=== PATIENT | female | born 1965 | race Caucasian/White ===

== ENCOUNTER 2019-08-12 09:02 | Inpatient (IN) | payer MEDICARE, MEDICAID, SELFPAY ==
[2019-08-12] VITALS (9 sets, daily range): BP systolic 100–130; BP diastolic 58–95; PULSE 75–131; RESP 14–20; TEMP 36.4–37.7; O2SAT 96–100; BMI 25.0
--- NOTE | 2019-08-12 09:33 | ED.GENADULT ---
HPI - General Adult General Chief complaint: Unspecified Stated complaint: angioedema x 2 days Time Seen by Provider: 08/12/19 09:14 Source: patient Mode of arrival: ambulatory Limitations: no limitations History of Present Illness HPI narrative: Patient is a 53-year-old female who presents with facial swelling that is been present now for the last 2 days having had a similar occurrence did note a scratch to the nose with history of staph infection in the past patient notes fever chills and nausea on arrival to emergency department is not taken anything for her symptoms. Patient notes that she has had similar occurrence in the past pain is a moderate aching pain in the face worse with palpation Related Data Allergies Allergy/AdvReac Type Severity Reaction Status Date / Time Penicillins Allergy Unknown UNKNOWN Verified 08/12/19 09:11 Sulfa (Sulfonamide Allergy Unknown Verified 08/12/19 09:11 Antibiotics) Review of Systems Review of Systems: All systems reviewed & are unremarkable except as noted in HPI and below PMFSH Social History Social History (Updated 08/12/19 @ 09:34 by Migel Jimenez PA-C) Smoking status: Current every day smoker Gender identity (if verbalized by the patient): Female Exam Narrative: Exam Narrative: GENERAL: Well-appearing, well-nourished, and in no acute distress. HEAD: Normocephalic, atraumatic. EYES: PERRLA and EOMI. ENT: Nares clear, no rhinorrhea or epistaxis. Mucous membranes moist. Oropharynx without tonsillar hypertrophy exudate or other lesions. NECK: Supple. No adenopathy or masses. CHEST: Clear to auscultation. No respiratory distress. No wheezes rales or rhonchi HEART: Tachycardic rate and rhythm. No murmur heard. EXTREMITIES: Normal range of motion. No edema. SKIN: Warm, dry, no rash. Redness and swelling over the cheeks nose and upper lip with small abrasion of the nose noted. Some drainage from the right eye appears to be purulent NEURO: No focal deficits. Alert and oriented x3. PSYCH: Normal mood and affect. Course Course Emergency Course: Patient in the room in no distress aware of case findings treatment plan and diagnosis agreeing to stay in hospital Consultations Consultation #1: Spoke with hospitalist who is agreed to accept the patient Vital Signs Vital signs: Vital Signs Temperature 97.9 F 08/12/19 09:07 Pulse Rate 75 08/12/19 09:07 Respiratory Rate 18 08/12/19 09:07 Blood Pressure 118/67 08/12/19 09:07 Pulse Oximetry 96 08/12/19 09:07 Temperature 97.9 F 08/12/19 09:07 Pulse Rate 131 H 08/12/19 09:20 Respiratory Rate 16 08/12/19 09:20 Blood Pressure 107/95 H 08/12/19 09:20 Pulse Oximetry 98 08/12/19 09:20 Medical Decision Making MDM Narrative Medical decision making narrative: Patient in the room at this time nontoxic-appearing resting comfortably in the room felt appropriate for inpatient therapy was hydrated in the emergency department and started on antibiotics Vital Signs Vital Signs: Vital Signs Temperature 97.9 F 08/12/19 09:07 Pulse Rate 75 08/12/19 09:07 Respiratory Rate 18 08/12/19 09:07 Blood Pressure 118/67 08/12/19 09:07 Pulse Oximetry 96 08/12/19 09:07 Temperature 97.9 F 08/12/19 09:07 Pulse Rate 131 H 08/12/19 09:20 Respiratory Rate 16 08/12/19 09:20 Blood Pressure 107/95 H 08/12/19 09:20 Pulse Oximetry 98 08/12/19 09:20 Discharge Plan Discharge Clinical Impression: Cellulitis of face, Sepsis Patient Disposition: Still a Patient Condition: Stable Follow-up/Referrals: PHYSICIAN,ASSISTANCE SPECIALIST [Primary Care Provider] -
[2019-08-12 09:54] LABS: Basophils Absolute Auto 0.1 K/mm3 (0.0-0.1); Basophils Percent Auto 0.5 % (0.2-1.2); Eosinophils Percent Auto 0.1 % (0-4.4); Hemoglobin 13.1 g/dL (12.0-15.0); Immature Granulocyte Absolute 0.23 K/mm3 (0.00-0.031); Immature Granulocyte Percent A 1.2 % (0-0.5); Lymphocytes Absolute Auto 1.82 K/mm3 (0.9-3.2); Lymphocytes Percent Auto 9.8 % (18.3-44.2); Mean Corpuscular Hemoglobin 31.1 pg (26-34); Mean Corpuscular Volume 97.4 fl (80-100); Monocytes Absolute Auto 1.9 K/mm3 (0.1-0.6); Monocytes Percent Auto 10.2 % (2.6-8.5); Neutrophils Absolute Auto 14.5 K/mm3 (1.3-6.7); Neutrophils Percent Auto 78.2 % (45.5-73.1); Platelet Count Result 268 k/mm3 (150-375); Red Blood Count 4.21 M/mm3 (4.2-5.4); Red Cell Distribution Width 13.8 % (11.5-14.5); White Blood Count 18.6 K/mm3 (4.5-10.0)
[2019-08-12 10:06] LABS: Blood Urea Nitrogen 12 mg/dL (7-17); Calcium 9.3 mg/dL (8.4-10.2); Carbon Dioxide 24 mmol/L (22-30); Chloride 94 mmol/L (98-107); Estimated CRCL calculation 34 ml/min; Estimated Glomerular Filt Rate 47; Glucose 127 mg/dL (65-105); Lactic Acid Reflex 3.1 mmol/L (0.7-2.1); Potassium 3.3 mmol/L (3.4-5.0); Sodium 139 mmol/L (137-145)
[2019-08-12] MEDS: SODIUM CHLORIDE 0.9% IV 1,000 ML 999 ML IV CONT ×2 (10:22→10:26)
--- NOTE | 2019-08-12 12:09 | ADMGEN ---
This patient, Sintia Hernández, was admitted to 2 Medical Room 252-. Patient/family oriented to hospital policies and general routines including ID bracelet, bed and alarms, visiting hours, pain management, procedures, bathroom and other care routines, personal items, smoking policy, room service/diet, and visiting hours. Valuables list has been completed. Information on how to activate the Rapid Response Team has been discussed. Patient/Family are encouraged to report perceived risks to care and to ask questions if they do not understand what they are told or what they should do.
[2019-08-12 12:52] LABS: Reflex Lactic Acid Yes or No Add Lactic
[2019-08-12 13:48] LABS: Lactic Acid 1.1 mmol/L (0.7-2.1)
[2019-08-12] MEDS: KETOROLAC 15 MG/ML VIAL (*BKC) IV PUSH (15:48)
[2019-08-12] MEDS: ONDANSETRON INJ 4 MG/2 ML VIAL IV PUSH (16:11)
--- NOTE | 2019-08-12 17:16 | PM.IMHP ---
H&P: HPI History of Present Illness Chief complaint: facial cellulitis/sepsis Narrative: Date of visit 1644. Sintia Hernández is a 53 year old hypertensive white female with history of cerebral vascular disease who presented to the hospital with complaints painful red swelling of her face of 1-2 days duration. She had been playing with her granddaughter some 3-4 days ago when she was accidentally struck on the side of her nose and face with a whole way. That left a small abrasion and within 48 hours she had the swelling and erythema. She has felt warm but with temperature as high as 100? at home and with swelling worsening she came in for evaluation. She had a marked leukocytosis tachycardia and thus admitted for evaluation and treatment of the same. She did relate that she had a minor staph infection in the past under nasal full old but nothing as severe as this. Review of Systems Review of Systems: Narrative: Constitutional weight is steady and appetite good prior to present illness Eye no double vision or scotoma but low but difficulty seen with swelling around her right eye Mouth slight pharyngitis Pulmonary no shortness of breath wheezing or cough CV no chest pain or palpitation GI she has had some nausea without vomiting no diarrhea melena or hematochezia no dysuria hematuria Muscle skeletal no particular joint discomfort Integument the abrasion and and erythema Neuro previous history of right hemiparesis with CVA and seem to be worse at present time with present illness [facility] Family History Family History (Updated 08/12/19 @ 17:30 by Aamir Mckeon MD) Father Acute myocardial infarction Mother Hypertension Social History Social History (Updated 08/12/19 @ 09:34 by Migel Jimenez PA-C) Years smoked: 20 Smoking status: Current some day smoker Tobacco type: cigarettes Second hand tobacco smoke exposure: Yes Alcohol intake: never Substance use: never Gender identity (if verbalized by the patient): Female Spiritual care concerns: No Agree to blood products: Yes Meds Home Medications and Allergies Home Medications Medication Instructions Recorded Confirmed Type amlodipine 10 mg PO DAILY 08/12/19 08/12/19 History atorvastatin 80 mg PO HS 08/12/19 08/12/19 History baclofen 10 mg PO TID 08/12/19 08/12/19 History calcium carbonate [Calcium 600] 1,200 mg PO DAILY 08/12/19 08/12/19 History levothyroxine 100 mcg PO DAILY 08/12/19 08/12/19 History multivitamin,[id number] 1 tablet PO DAILY 08/12/19 08/12/19 History [Complete Multivitamin] tramadol 50 mg PO Q6H PRN 08/12/19 08/12/19 History Allergies Allergy/AdvReac Type Severity Reaction Status Date / Time Penicillins Allergy Unknown UNKNOWN Verified 08/12/19 09:11 Sulfa (Sulfonamide Allergy Unknown Verified 08/12/19 09:11 Antibiotics) Vital Signs Vital Signs - 24 hr 08/12/19 09:07 08/12/19 09:20 08/12/19 10:31 Temperature 36.6 C Pulse Rate 75 131 H 98 Respiratory Rate 18 16 16 Blood Pressure 118/67 107/95 H 109/66 Pulse Oximetry 96 98 97 08/12/19 11:12 08/12/19 12:00 08/12/19 12:02 Temperature 37.6 C 36.8 C Pulse Rate 97 94 90 Respiratory Rate 20 16 20 Blood Pressure 109/66 113/68 110/70 Pulse Oximetry 99 100 97 08/12/19 14:00 Temperature 37.7 C H Pulse Rate 95 Respiratory Rate 16 Blood Pressure 100/58 L Pulse Oximetry 97 Exam Narrative: Exam Narrative: Blood pressure presently is 100/60 pulse is 95 temperature is 37.7? pulse Pupils are reactive though the right eye is almost swollen shut with some matting at the corner of the eye Mouth appears normal not a good look at the pharynx due to large tongue Neck some adenopathy at the angle of the jaw and preauricular area supple no carotid bruits Lungs are clear CV regular, slight tachy with regular rhythm no murmurs or gallops Abdomen is soft nontender bowel sounds seem to be slightly hyperactive Extremities without edema no calf tende
[2019-08-12] MEDS: BACLOFEN 10 MG TABLET PO (17:58)
[2019-08-12] MEDS: KCL 40 MEQ/0.9% SOD CHL 1,000 ML 100 ML IV CONT (17:59)
[2019-08-12] MEDS: TRAMADOL HCL 50 MG TABLET PO (18:07)
[2019-08-12] MEDS: ENOXAPARIN 40 MG/0.4 ML SYRINGE SUB-Q (20:21)
[2019-08-12] MEDS: ATORVASTATIN 40 MG TABLET 80 MG PO (20:21)
[2019-08-12] MEDS: FAMOTIDINE 20 MG/2 ML VIAL IV PUSH (20:22)
[2019-08-12] MEDS: MUPIROCIN 2% OINT 22 GM TUBE 1 APPLIC TOPICAL (20:24)
[2019-08-13] MEDS: TRAMADOL HCL 50 MG TABLET PO ×2 (00:44→21:19)
[2019-08-13 02:00] VITALS: BP 124/65; PULSE 88; RESP 16; TEMP 36.3; O2SAT 100
[2019-08-13] MEDS: KCL 40 MEQ/0.9% SOD CHL 1,000 ML 100 ML IV CONT (04:18)
[2019-08-13] MEDS: LEVOTHYROXINE SODIUM 100 MCG TABLET PO (05:34)
[2019-08-13] MEDS: KETOROLAC 15 MG/ML VIAL (*BKC) IV PUSH ×2 (05:39→15:56)
[2019-08-13 06:00] VITALS: BP 136/77; PULSE 102; RESP 18; TEMP 37.2; O2SAT 98
[2019-08-13 06:07] LABS: Basophils Percent Auto 0.4 % (0.2-1.2); Eosinophils Absolute Auto 0.1 K/mm3 (0-0.3); Eosinophils Percent Auto 0.6 % (0-4.4); Hematocrit 29.9 % (37.0-47.0); Hemoglobin 9.6 g/dL (12.0-15.0); Immature Granulocyte Absolute 0.12 K/mm3 (0.00-0.031); Immature Granulocyte Percent A 1.2 % (0-0.5); Lymphocytes Absolute Auto 1.56 K/mm3 (0.9-3.2); Lymphocytes Percent Auto 15.3 % (18.3-44.2); Mean Corpuscular HGB Conc 32.1 g/dl (32-36); Mean Corpuscular Hemoglobin 30.9 pg (26-34); Mean Corpuscular Volume 96.1 fl (80-100); Mean Platelet Volume 10.3 fl (7.4-10.4); Monocytes Absolute Auto 0.9 K/mm3 (0.1-0.6); Monocytes Percent Auto 9.1 % (2.6-8.5); Neutrophils Absolute Auto 7.5 K/mm3 (1.3-6.7); Neutrophils Percent Auto 73.4 % (45.5-73.1); Platelet Count Result 185 k/mm3 (150-375); Red Blood Count 3.11 M/mm3 (4.2-5.4); Red Cell Distribution Width 13.9 % (11.5-14.5); White Blood Count 10.2 K/mm3 (4.5-10.0)
[2019-08-13 06:21] LABS: Alanine Aminotransferase 34 U/L (4-35); Albumin Level 2.9 g/dL (3.5-5.1); Alkaline Phosphatase 77 U/L (38-126); Aspartate Amino Transferase 51 U/L (14-36); Bilirubin,Total 0.2 mg/dL (0.2-1.3); Blood Urea Nitrogen 12 mg/dL (7-17); Calcium 7.4 mg/dL (8.4-10.2); Carbon Dioxide 21 mmol/L (22-30); Chloride 108 mmol/L (98-107); Estimated CRCL calculation 50 ml/min; Estimated Glomerular Filt Rate > 60; Glucose 91 mg/dL (65-105); Potassium 4.3 mmol/L (3.4-5.0); Sodium 139 mmol/L (137-145)
[2019-08-13] MEDS: ASPIRIN 81 MG ENTERIC TABLET PO (08:30)
[2019-08-13] MEDS: BACLOFEN 10 MG TABLET PO ×2 (08:30→17:48)
[2019-08-13] MEDS: CALCIUM CARBONATE (OSCAL) 500 MG TABLET 1000 MG PO (08:30)
[2019-08-13] MEDS: THERAPEUTIC MULTIVITAMINS/MINERALS TAB (*BKC) 1 TABLET PO (08:30)
[2019-08-13] MEDS: FAMOTIDINE 20 MG/2 ML VIAL IV PUSH ×2 (08:30→21:19)
[2019-08-13] MEDS: MUPIROCIN 2% OINT 22 GM TUBE 1 APPLIC TOPICAL ×2 (08:31→21:19)
[2019-08-13 10:00] VITALS: BP 123/75; PULSE 76; RESP 16; TEMP 37.4; O2SAT 100
--- NOTE | 2019-08-13 11:40 | PM.IMPN ---
Progress Note: A&P Assessment and Plan (1) Cellulitis of face: Code(s): L03.211 - Cellulitis of face Status: Acute Assessment and Plan: Staff are strep. Cultures have been obtained and so far negative. Continue vancomycin (2) Sepsis: Code(s): A41.9 - Sepsis, unspecified organism Status: Acute Assessment and Plan: As evidence by tachycardia, leukocytosis, and elevated lactic acid. Received 2 L of fluid in ER will continue IV fluid here along with antibiotics. Secondary to cellulitis Has resolved with WBC and pulse rate dropping (3) Hypertension: Code(s): I10 - Essential (primary) hypertension Status: Acute Assessment and Plan: Pressure is soft will still hold amlodipine today, possibly restart 08/13 (4) Cerebral vascular disease: Code(s): I67.9 - Cerebrovascular disease, unspecified Status: Acute Assessment and Plan: History and distant past. She stop taking her aspirin in the past. Will continue her statin and use low-dose aspirin (5) Hyperlipidemia: Code(s): E78.5 - Hyperlipidemia, unspecified Status: Acute Assessment and Plan: Continue statin , SGOT slightly elevated. Recheck in a.m. with hepatitis profile (6) DVT prophylaxis: Code(s): Z29.9 - Encounter for prophylactic measures, unspecified Status: Acute Assessment and Plan: Lovenox Subjective Date/time seen: 08/13/19 11:40 Interval history: Date of visit 08/12. 53-year-old hypertensive white female with past history of cerebrovascular disease admitted with cellulitis of her face over the last 48 hours. Swelling is subsided somewhat and pruritus is better.. Low-grade temp only no nausea and ate breakfast Exam Narrative: Exam Narrative: Blood pressure presently is 124/74 pulse is 76 temperature is 37.4? Pupils are reactive though the right eye is now more open Mouth appears normal not a good look at the pharynx due to large tongue Neck some adenopathy at the angle of the jaw and preauricular area supple no carotid bruits and inflammation extends below irregular over jaw on the right Lungs are clear CV regular, no murmurs or gallops Abdomen is soft nontender bowel sounds seem to be slightly hyperactive Extremities without edema no calf tenderness dorsalis pedis posterior tibial 2+ Neuro she is alert and no gross focal deficits Integument she has marked erythema and swelling right facial area extending over to the left side . Faint abrasion on the right side of her nose Objective Data Vital Signs Vital Signs: Vital Signs - 24 hr 08/12/19 12:00 08/12/19 12:02 08/12/19 14:00 Temperature 37.6 C 36.8 C 37.7 C H Pulse Rate 94 90 95 Respiratory Rate 16 20 16 Blood Pressure 113/68 110/70 100/58 L Pulse Oximetry 100 97 97 08/12/19 18:00 08/12/19 21:23 08/13/19 02:00 Temperature 37.6 C 36.4 C 36.3 C L Pulse Rate 84 92 88 Respiratory Rate 14 16 16 Blood Pressure 130/76 122/68 124/65 Pulse Oximetry 100 100 100 08/13/19 06:00 08/13/19 10:00 Temperature 37.2 C 37.4 C Pulse Rate 102 H 76 Respiratory Rate 18 16 Blood Pressure 136/77 123/75 Pulse Oximetry 98 100 Intake/Output Intake/Output: Intake & Output 08/10/19 08/11/19 08/12/19 08/13/19 23:59 23:59 23:59 23:59 Intake Total 3520 1929 Output Total 550 Balance 3520 1379 Meds/Results Medications: Active Medications Generic Name Dose Route Start Last Admin Trade Name Freq PRN Reason Stop Dose Admin Acetaminophen 650 mg 08/12/19 16:49 Tylenol Tablet PO Q6H PRN Mild Pain (1-3) or Fever Aspirin 81 mg 08/13/19 09:00 08/13/19 08:30 Aspirin Ec PO 81 mg QAM OCTAVIO Administration Atorvastatin Calcium 80 mg 08/12/19 21:00 08/12/19 20:21 Lipitor PO 80 mg HS OCTAVIO Administration Baclofen 10 mg 08/12/19 17:00 08/13/19 08:30 Lioresal Po PO 10 mg TID OCTAVIO Administration Calcium Carbonate 1,000 mg 08/12/19 17:10 08/13/19 08:30
[2019-08-13 14:00] VITALS: BP 125/70; PULSE 90; RESP 16; TEMP 36.6; O2SAT 99
[2019-08-13 18:00] VITALS: BP 128/78; PULSE 76; RESP 16; TEMP 37.1; O2SAT 100
[2019-08-13] MEDS: ATORVASTATIN 40 MG TABLET 80 MG PO (21:20)
[2019-08-13] MEDS: ENOXAPARIN 40 MG/0.4 ML SYRINGE SUB-Q (21:21)
[2019-08-13 21:36] VITALS: BP 111/55; PULSE 91; RESP 16; TEMP 37; O2SAT 98
[2019-08-14] VITALS (8 sets, daily range): BP systolic 100–128; BP diastolic 57–76; PULSE 77–102; RESP 16–19; TEMP 36.2–38.1; O2SAT 94–100
[2019-08-14] MEDS: KETOROLAC 15 MG/ML VIAL (*BKC) IV PUSH ×3 (00:38→21:08)
[2019-08-14 05:44] LABS: Basophils Absolute Auto 0.1 K/mm3 (0.0-0.1); Basophils Percent Auto 0.6 % (0.2-1.2); Eosinophils Absolute Auto 0.3 K/mm3 (0-0.3); Eosinophils Percent Auto 2.4 % (0-4.4); Hematocrit 31.1 % (37.0-47.0); Hemoglobin 9.8 g/dL (12.0-15.0); Immature Granulocyte Absolute 0.18 K/mm3 (0.00-0.031); Immature Granulocyte Percent A 1.5 % (0-0.5); Lymphocytes Absolute Auto 2.07 K/mm3 (0.9-3.2); Lymphocytes Percent Auto 17.4 % (18.3-44.2); Mean Corpuscular HGB Conc 31.5 g/dl (32-36); Mean Corpuscular Hemoglobin 30.8 pg (26-34); Mean Corpuscular Volume 97.8 fl (80-100); Mean Platelet Volume 10.4 fl (7.4-10.4); Monocytes Absolute Auto 1.3 K/mm3 (0.1-0.6); Monocytes Percent Auto 10.9 % (2.6-8.5); Neutrophils Percent Auto 67.2 % (45.5-73.1); Platelet Count Result 213 k/mm3 (150-375); Red Blood Count 3.18 M/mm3 (4.2-5.4); Red Cell Distribution Width 14.3 % (11.5-14.5); White Blood Count 11.9 K/mm3 (4.5-10.0)
[2019-08-14 05:58] LABS: Alanine Aminotransferase 34 U/L (4-35); Albumin Level 2.9 g/dL (3.5-5.1); Alkaline Phosphatase 77 U/L (38-126); Aspartate Amino Transferase 44 U/L (14-36); Bilirubin,Total 0.2 mg/dL (0.2-1.3)
[2019-08-14] MEDS: LEVOTHYROXINE SODIUM 100 MCG TABLET PO (06:05)
[2019-08-14] MEDS: TRAMADOL HCL 50 MG TABLET PO ×2 (06:08→12:08)
[2019-08-14 06:25] LABS: Hepatitis B Surface Antigen Negative (Negative)
[2019-08-14 06:31] LABS: HAV RESULT Negative (Negative); Hepatitis B Core IgM Result Negative (Negative)
[2019-08-14 06:42] LABS: Hepatitis C Virus Antibody Negative (Negative)
[2019-08-14] MEDS: CALCIUM CARBONATE (OSCAL) 500 MG TABLET 1000 MG PO (08:23)
[2019-08-14] MEDS: THERAPEUTIC MULTIVITAMINS/MINERALS TAB (*BKC) 1 TABLET PO (08:23)
[2019-08-14] MEDS: ASPIRIN 81 MG ENTERIC TABLET PO (08:23)
[2019-08-14] MEDS: FAMOTIDINE 20 MG/2 ML VIAL IV PUSH ×2 (08:24→21:09)
[2019-08-14] MEDS: BACLOFEN 10 MG TABLET PO ×3 (08:25→16:56)
--- NOTE | 2019-08-14 15:21 | PM.IMPN ---
Progress Note: A&P Assessment and Plan (1) Cellulitis of face: Code(s): L03.211 - Cellulitis of face Status: Acute Assessment and Plan: Staff or strep. Cultures have been obtained and so far negative. Continue vancomycin, with continued improvement E E (2) Sepsis: Code(s): A41.9 - Sepsis, unspecified organism Status: Acute Assessment and Plan: As evidence by tachycardia, leukocytosis, and elevated lactic acid. Received 2 L of fluid in ER will continue Ed IV fluid untill 08/12. Secondary to cellulitis Has resolved with WBC and pulse rate dropping (3) Hypertension: Code(s): I10 - Essential (primary) hypertension Status: Acute Assessment and Plan: Pressure was soft forand still holding amlodipine today, possibly restart 08/14 murmur (4) Cerebral vascular disease: Code(s): I67.9 - Cerebrovascular disease, unspecified Status: Acute Assessment and Plan: History and distant past. She stop taking her aspirin in the past. Will continue her statin and use low-dose aspirin (5) Hyperlipidemia: Code(s): E78.5 - Hyperlipidemia, unspecified Status: Acute Assessment and Plan: Continue statin , SGOT slightly elevated but better today, and hep profile negative (6) DVT prophylaxis: Code(s): Z29.9 - Encounter for prophylactic measures, unspecified Status: Acute Assessment and Plan: Lovenox (7) Anemia: Code(s): D64.9 - Anemia, unspecified Status: Acute Assessment and Plan: Probably secondary to aggressive hydration and acute infection, but will check iron studies and B12 08/14 Subjective Date/time seen: 08/14/19 15:21 Interval history: Date of visit 08/13. 53-year-old hypertensive white female with past history of cerebrovascular disease admitted with cellulitis of her face that started 23-48 hrs prior to admission.. Swelling continues to improve and pruritus is better.. Low-grade temp only no nausea . Exam Narrative: Exam Narrative: Blood pressure presently is 124/76 pulse is 76 temperature is 37.4? tMax Pupils are reactive though the right eye is now more open much more today with decrease erythema and inflamation Mouth appears normal not a good look at the pharynx due to large tongue Neck some adenopathy at the angle of the jaw and preauricular area as before, supple Lungs are clear CV regular, no murmurs or gallops Abdomen is soft nontender bowel sounds seem to be slightly hyperactive Extremities without edema dorsalis pedis posterior tibial 2+ Neuro she is alert and no gross focal deficits Integument she has marked erythema and swelling right facial area extending over to the left side . Faint abrasion on the right side of her nose Objective Data Vital Signs Vital Signs: Vital Signs - 24 hr 08/13/19 18:00 08/13/19 21:36 08/14/19 02:12 Temperature 37.1 C 37.0 C 36.8 C Pulse Rate 76 91 88 Respiratory Rate 16 16 16 Blood Pressure 128/78 111/55 L 117/62 Pulse Oximetry 100 98 100 08/14/19 06:00 08/14/19 08:00 08/14/19 14:00 Temperature 37.0 C 37.1 C 37.5 C Pulse Rate 77 95 98 Respiratory Rate 16 19 16 Blood Pressure 118/62 100/57 L 124/76 Pulse Oximetry 96 96 98 Intake/Output Intake/Output: Intake & Output 08/11/19 08/12/19 08/13/19 08/14/19 23:59 23:59 23:59 23:59 Intake Total 3520 4270 1150 Output Total 1750 1150 Balance 3520 2520 0 Meds/Results Medications: Active Medications Generic Name Dose Route Start Last Admin Trade Name Freq PRN Reason Stop Dose Admin Acetaminophen 650 mg 08/12/19 16:49 Tylenol Tablet PO Q6H PRN Mild Pain (1-3) or Fever Aspirin 81 mg 08/13/19 09:00 08/14/19 08:23 Aspirin Ec PO 81 mg QAM OCTAVIO Administration Atorvastatin Calcium 80 mg 08/12/19 21:00 08/13/19 21:20 Lipitor PO 80 mg HS OCTAVIO Administration Baclofen 10 mg 08/12/19 17:00 08/14/19 12:08 Lioresal Po PO 10 mg TID OCTAVIO Admini
[2019-08-14] MEDS: LORATADINE 10 MG TABLET PO (16:56)
[2019-08-14] MEDS: EUCERIN CREAM 120 GM JAR 1 APPLIC TOPICAL (16:57)
[2019-08-14] MEDS: ACETAMINOPHEN 325 MG TABLET 650 MG PO (18:01)
[2019-08-14] MEDS: ENOXAPARIN 40 MG/0.4 ML SYRINGE SUB-Q (21:09)
[2019-08-14] MEDS: ATORVASTATIN 40 MG TABLET 80 MG PO (21:09)
[2019-08-15] VITALS (7 sets, daily range): BP systolic 114–157; BP diastolic 60–91; PULSE 80–103; RESP 14–22; TEMP 36.3–37.2; O2SAT 93–99
[2019-08-15] MEDS: KETOROLAC 15 MG/ML VIAL (*BKC) IV PUSH ×2 (03:32→15:19)
[2019-08-15 05:40] LABS: Basophils Absolute Auto 0.1 K/mm3 (0.0-0.1); Basophils Percent Auto 0.7 % (0.2-1.2); Eosinophils Absolute Auto 0.4 K/mm3 (0-0.3); Eosinophils Percent Auto 3.4 % (0-4.4); Hematocrit 32.4 % (37.0-47.0); Hemoglobin 10.5 g/dL (12.0-15.0); Immature Granulocyte Absolute 0.22 K/mm3 (0.00-0.031); Immature Granulocyte Percent A 1.9 % (0-0.5); Immature Reticulocyte Fraction 5.1 % (3.0-15.9); Lymphocytes Absolute Auto 2.17 K/mm3 (0.9-3.2); Lymphocytes Percent Auto 18.9 % (18.3-44.2); Mean Corpuscular HGB Conc 32.4 g/dl (32-36); Mean Corpuscular Volume 95.6 fl (80-100); Mean Platelet Volume 10.1 fl (7.4-10.4); Monocytes Absolute Auto 1.1 K/mm3 (0.1-0.6); Monocytes Percent Auto 9.5 % (2.6-8.5); Neutrophils Absolute Auto 7.5 K/mm3 (1.3-6.7); Neutrophils Percent Auto 65.6 % (45.5-73.1); Platelet Count Result 245 k/mm3 (150-375); Red Blood Count 3.39 M/mm3 (4.2-5.4); Red Cell Distribution Width 14.2 % (11.5-14.5); Reticulocyte Hemoglobin Conten 30.5 pg (28.2-35.7); Reticulocyte Percent 0.68 % (0.7-4.3); Reticulocytes Absolute 0.02 B/L (32.2-175.7); White Blood Count 11.5 K/mm3 (4.5-10.0)
[2019-08-15 05:51] LABS: Alanine Aminotransferase 28 U/L (4-35); Albumin Level 3.2 g/dL (3.5-5.1); Alkaline Phosphatase 93 U/L (38-126); Aspartate Amino Transferase 28 U/L (14-36); Bilirubin,Total 0.4 mg/dL (0.2-1.3); Blood Urea Nitrogen 11 mg/dL (7-17); Calcium 8.5 mg/dL (8.4-10.2); Carbon Dioxide 26 mmol/L (22-30); Chloride 110 mmol/L (98-107); Estimated CRCL calculation 50 ml/min; Estimated Glomerular Filt Rate > 60; Glucose 93 mg/dL (65-105); Potassium 3.7 mmol/L (3.4-5.0); Sodium 140 mmol/L (137-145)
[2019-08-15 05:55] LABS: Iron 27 ug/dL (37-170)
[2019-08-15 06:05] LABS: Percent Iron Saturation 11 % (20-50)
[2019-08-15] MEDS: LEVOTHYROXINE SODIUM 100 MCG TABLET PO (06:07)
[2019-08-15 06:28] LABS: Lactate Dehydrogenase 503 U/L (313-618)
[2019-08-15] MEDS: THERAPEUTIC MULTIVITAMINS/MINERALS TAB (*BKC) 1 TABLET PO (08:07)
[2019-08-15] MEDS: BACLOFEN 10 MG TABLET PO ×3 (08:07→16:17)
[2019-08-15] MEDS: CALCIUM CARBONATE (OSCAL) 500 MG TABLET 1000 MG PO (08:07)
[2019-08-15] MEDS: FAMOTIDINE 20 MG/2 ML VIAL IV PUSH ×2 (08:07→20:46)
[2019-08-15] MEDS: LORATADINE 10 MG TABLET PO (08:08)
[2019-08-15] MEDS: ASPIRIN 81 MG ENTERIC TABLET PO (08:08)
[2019-08-15] MEDS: TRAMADOL HCL 50 MG TABLET PO (08:08)
[2019-08-15] MEDS: EUCERIN CREAM 120 GM JAR 1 APPLIC TOPICAL (08:09)
--- NOTE | 2019-08-15 10:44 | PC.NURSE ---
Notified Dr. Lee of patient being unsteady on her feet and not feeling right . Reported her vitals to him and requested and order for PT/OT. He said he would assess her and put in new orders.
--- NOTE | 2019-08-15 13:35 | PM.IMPN ---
Progress Note: A&P Assessment and Plan (1) Cellulitis of face: Code(s): L03.211 - Cellulitis of face Status: Acute Assessment and Plan: MRSA culture of nares and blood cultures negative 3/3 started PT/OT due to generalized weakness, lightheadedness Improving on vancomycin day 3 (2) Hypertension: Qualifiers: Hypertension type: essential hypertension Qualified Code(s): I10 - Essential (primary) hypertension Code(s): I10 - Essential (primary) hypertension Status: Acute Assessment and Plan: Continue to monitor (3) Cerebral vascular disease: Code(s): I67.9 - Cerebrovascular disease, unspecified Status: Acute Assessment and Plan: Not an active problem (4) Anemia: Qualifiers: Anemia type: other cause Other causes of anemia: chronic disease, other Qualified Code(s): D63.8 - Anemia in other chronic diseases classified elsewhere Code(s): D64.9 - Anemia, unspecified Status: Acute Assessment and Plan: Stable Monitor (5) Sepsis: Qualifiers: Sepsis type: sepsis due to unspecified organism Sepsis acute organ dysfunction status: without acute organ dysfunction Qualified Code(s): A41.9 - Sepsis, unspecified organism Code(s): A41.9 - Sepsis, unspecified organism Status: Acute Assessment and Plan: Resolved Subjective Date/time seen: 08/15/19 13:35 Interval history: Lightheaded while walking to bathroom this morning. Complains of some soreness in her throat. No difficulty swallowing. Some pain with swallowing. Able to stick her tongue out and smile without pain. Does complain of headaches. No associated neurologic symptoms except lightheaded. No vertigo. No nausea or vomiting. No weakness or numbness. Denied bowel or bladder changes, chest pain or shortness of breath, swelling. Review of Systems Review of Systems: All systems reviewed & are unremarkable except as noted in HPI and below Exam Narrative: Exam Narrative: HEENT: EOMI, PERRL, sclerae nonicteric, pharyngeal mucosa pink and intact NECK: No JVD, adenopathy, or thyromegaly CHEST: Clear to auscultation. Normal effort. HEART: NL S1/S2, regular, no murmur ABDOMEN: BS+, soft, nontender, no mass, no bruits EXTREMITIES: No cyanosis, edema, or clubbing NEUROLOGIC: CN intact and symmetric to inspection. MUSCULOSKELETAL: Tone and strength symmetric. PSYCH: Alert. Oriented to person, place, and time. SKIN: fading erythema on forehead and cheeks with healing open areas on left external naris Objective Data Vital Signs Vital Signs: Vital Signs - 24 hr 08/14/19 14:00 08/14/19 16:00 08/14/19 18:01 Temperature 99.5 F 100.5 F H Pulse Rate 98 102 H Respiratory Rate 16 18 Blood Pressure 124/76 128/64 Pulse Oximetry 98 94 08/14/19 19:01 08/14/19 22:00 08/15/19 02:00 Temperature 100.4 F H 97.1 F L 97.6 F Pulse Rate 86 90 Respiratory Rate 18 20 Blood Pressure 114/68 132/83 Pulse Oximetry 96 99 08/15/19 06:55 08/15/19 10:00 Temperature 98.2 F 97.6 F Pulse Rate 83 81 Respiratory Rate 20 14 Blood Pressure 114/60 142/81 H Pulse Oximetry 99 96 Intake/Output Intake/Output: Intake & Output 08/12/19 08/13/19 08/14/19 08/15/19 23:59 23:59 23:59 23:59 Intake Total 3520 4270 1640 670 Output Total 1750 1200 600 Balance 3520 2520 440 70 Meds/Results Medications: Active Medications Generic Name Dose Route Start Last Admin Trade Name Freq PRN Reason Stop Dose Admin Acetaminophen 650 mg 08/12/19 16:49 08/14/19 18:01 Tylenol Tablet PO 650 mg Q6H PRN Administration Mild Pain (1-3) or Fever Aspirin 81 mg 08/13/19 09:00 08/15/19 08:08 Aspirin Ec PO 81 mg QAM OCTAVIO Administration Atorvastatin Calcium 80 mg 08/12/19 21:00 08/14/19 21:09 Lipitor PO 80 mg HS OCTAVIO Administration Baclofen 10 mg 08/12/19 17:00 08/15/19 12:22 Lioresal Po PO 10 mg TID OCTAVIO Admini
--- NOTE | 2019-08-15 16:30 | PC.NURSE ---
On 08/15/19, the graduate nurse Ralph Amin RN, provided care and completed [facility] documentation on this patient. I have reviewed the student's documentation and agree with the findings.
[2019-08-15] MEDS: ACETAMINOPHEN 325 MG TABLET 650 MG PO (20:04)
[2019-08-15] MEDS: ENOXAPARIN 40 MG/0.4 ML SYRINGE SUB-Q (20:46)
[2019-08-15] MEDS: ATORVASTATIN 40 MG TABLET 80 MG PO (20:46)
[2019-08-16] VITALS: BP 119/70; PULSE 83; RESP 20; TEMP 36.8; O2SAT 97
[2019-08-16 04:00] VITALS: BP 132/73; PULSE 84; RESP 18; TEMP 37.1; O2SAT 98
[2019-08-16] MEDS: LEVOTHYROXINE SODIUM 100 MCG TABLET PO (05:40)
[2019-08-16] MEDS: KETOROLAC 15 MG/ML VIAL (*BKC) IV PUSH (06:27)
[2019-08-16] MEDS: CALCIUM CARBONATE (OSCAL) 500 MG TABLET 1000 MG PO (08:49)
[2019-08-16] MEDS: LORATADINE 10 MG TABLET PO (08:49)
[2019-08-16] MEDS: BACLOFEN 10 MG TABLET PO ×3 (08:49→17:18)
[2019-08-16] MEDS: THERAPEUTIC MULTIVITAMINS/MINERALS TAB (*BKC) 1 TABLET PO (08:49)
[2019-08-16] MEDS: ASPIRIN 81 MG ENTERIC TABLET PO (08:50)
[2019-08-16] MEDS: FAMOTIDINE 20 MG/2 ML VIAL IV PUSH ×2 (08:50→20:11)
[2019-08-16] MEDS: EUCERIN CREAM 120 GM JAR 1 APPLIC TOPICAL (08:50)
[2019-08-16] MEDS: TRAMADOL HCL 50 MG TABLET PO ×2 (08:57→17:18)
[2019-08-16 11:18] VITALS: BP 133/73; PULSE 92; RESP 16; TEMP 36.3; O2SAT 98
--- NOTE | 2019-08-16 13:03 | PM.IMPN ---
Progress Note: A&P Assessment and Plan (1) Cellulitis of face: Code(s): L03.211 - Cellulitis of face Status: Acute Assessment and Plan: MRSA culture of nares and blood cultures negative 3/3 started PT/OT due to generalized weakness, lightheadedness Improving on vancomycin day 4 (2) Hypertension: Qualifiers: Hypertension type: essential hypertension Qualified Code(s): I10 - Essential (primary) hypertension Code(s): I10 - Essential (primary) hypertension Status: Acute Assessment and Plan: Continue to monitor (3) Cerebral vascular disease: Code(s): I67.9 - Cerebrovascular disease, unspecified Status: Acute Assessment and Plan: Not an active problem (4) Anemia: Qualifiers: Anemia type: other cause Other causes of anemia: chronic disease, other Qualified Code(s): D63.8 - Anemia in other chronic diseases classified elsewhere Code(s): D64.9 - Anemia, unspecified Status: Acute Assessment and Plan: Stable Monitor (5) Sepsis: Qualifiers: Sepsis acute organ dysfunction status: without acute organ dysfunction Sepsis type: sepsis due to unspecified organism Qualified Code(s): A41.9 - Sepsis, unspecified organism Code(s): A41.9 - Sepsis, unspecified organism Status: Acute Assessment and Plan: Resolved Subjective Date/time seen: 08/16/19 13:03 Interval history: Minimal pain in face now. No fevers. Tolerating diet. No gi/gu c/o. No bleeding. Review of Systems Review of Systems: All systems reviewed & are unremarkable except as noted in HPI and below Exam Narrative: Exam Narrative: HEENT: EOMI, PERRL, sclerae nonicteric, pharyngeal mucosa pink and intact NECK: No JVD, adenopathy, or thyromegaly CHEST: Clear to auscultation. Normal effort. HEART: NL S1/S2, regular, no murmur ABDOMEN: BS+, soft, nontender, no mass, no bruits EXTREMITIES: No cyanosis, edema, or clubbing NEUROLOGIC: CN intact and symmetric to inspection. MUSCULOSKELETAL: Tone and strength symmetric. PSYCH: Alert. Oriented to person, place, and time. SKIN: fading erythema on forehead and cheeks with healing open areas on left external naris Objective Data Vital Signs Vital Signs: Vital Signs - 24 hr 08/15/19 14:00 08/15/19 18:00 08/15/19 20:00 Temperature 97.5 F L 97.4 F L 98.2 F Pulse Rate 100 80 103 H Respiratory Rate 18 16 22 H Blood Pressure 145/83 H 134/64 157/91 H Pulse Oximetry 99 99 93 08/15/19 20:04 08/16/19 00:00 08/16/19 04:00 Temperature 99 F 98.2 F 98.7 F Pulse Rate 83 84 Respiratory Rate 20 18 Blood Pressure 119/70 132/73 Pulse Oximetry 97 98 08/16/19 11:18 Temperature 97.4 F L Pulse Rate 92 Respiratory Rate 16 Blood Pressure 133/73 Pulse Oximetry 98 Intake/Output Intake/Output: Intake & Output 08/13/19 08/14/19 08/15/19 08/16/19 23:59 23:59 23:59 23:59 Intake Total 4270 1640 1330 780 Output Total 1750 1200 600 Balance 2520 440 730 780 Meds/Results Medications: Active Medications Generic Name Dose Route Start Last Admin Trade Name Freq PRN Reason Stop Dose Admin Acetaminophen 650 mg 08/12/19 16:49 08/15/19 20:04 Tylenol Tablet PO 650 mg Q6H PRN Administration Mild Pain (1-3) or Fever Aspirin 81 mg 08/13/19 09:00 08/16/19 08:50 Aspirin Ec PO 81 mg QAM OCTAVIO Administration Atorvastatin Calcium 80 mg 08/12/19 21:00 08/15/19 20:46 Lipitor PO 80 mg HS OCTAVIO Administration Baclofen 10 mg 08/12/19 17:00 08/16/19 12:05 Lioresal Po PO 10 mg TID OCTAVIO Administration Calcium Carbonate 1,000 mg 08/12/19 17:10 08/16/19 08:49 Oscal 500 Mg PO 1,000 mg DAILY OCTAVIO Administration Diphenhydramine HCl 25 mg 08/14/19 13:36 08/14/19 21:08 Benadryl Cap PO 25 mg HS PRN Administration Itching Enoxaparin Sodium 40 mg 08/12/19 21:00 08/15/19 20:46 Lovenox SUB-Q 40 mg HS OCTAVIO Administration F
[2019-08-16 14:44] VITALS: BP 150/84; PULSE 107; RESP 18; TEMP 36.4; O2SAT 96
[2019-08-16 18:13] VITALS: BP 122/72; PULSE 91; RESP 16; TEMP 37.2; O2SAT 95
[2019-08-16 20:00] VITALS: BP 119/67; PULSE 82; RESP 16; TEMP 36.4; O2SAT 92
[2019-08-16] MEDS: ENOXAPARIN 40 MG/0.4 ML SYRINGE SUB-Q (20:11)
[2019-08-16] MEDS: ACETAMINOPHEN 325 MG TABLET 650 MG PO (20:12)
[2019-08-16] MEDS: ATORVASTATIN 40 MG TABLET 80 MG PO (20:12)
[2019-08-17 02:00] VITALS: BP 137/69; PULSE 85; RESP 16; TEMP 36.3; O2SAT 96
[2019-08-17 04:00] VITALS: BP 134/76; PULSE 77; RESP 16; TEMP 36.2; O2SAT 97
[2019-08-17] MEDS: TRAMADOL HCL 50 MG TABLET PO (05:57)
[2019-08-17] MEDS: LEVOTHYROXINE SODIUM 100 MCG TABLET PO (05:58)
[2019-08-17 06:09] LABS: Estimated CRCL calculation 45 ml/min; Estimated Glomerular Filt Rate > 60
[2019-08-17] MEDS: FAMOTIDINE 20 MG/2 ML VIAL IV PUSH (08:24)
[2019-08-17] MEDS: EUCERIN CREAM 120 GM JAR 1 APPLIC TOPICAL (08:25)
[2019-08-17] MEDS: ASPIRIN 81 MG ENTERIC TABLET PO (08:25)
[2019-08-17] MEDS: THERAPEUTIC MULTIVITAMINS/MINERALS TAB (*BKC) 1 TABLET PO (08:25)
[2019-08-17] MEDS: BACLOFEN 10 MG TABLET PO ×2 (08:25→12:15)
[2019-08-17] MEDS: LORATADINE 10 MG TABLET PO (08:25)
[2019-08-17] MEDS: CALCIUM CARBONATE (OSCAL) 500 MG TABLET 1000 MG PO (08:25)
[2019-08-17] MEDS: ACETAMINOPHEN 325 MG TABLET 650 MG PO (08:28)
[2019-08-17 10:00] VITALS: BP 132/82; PULSE 78; RESP 16; TEMP 36.7; O2SAT 100
--- NOTE | 2019-08-17 13:19 | PM.DS ---
DS: Diagnosis Admitting Diagnosis Admitting Diagnosis: Sepsis, unspecified organism Discharge Diagnosis (1) Cellulitis of face: Code(s): L03.211 - Cellulitis of face Status: Acute Assessment and Plan: MRSA culture of nares and blood cultures negative 3/3 started PT/OT due to generalized weakness, lightheadedness 3/ gait improved Improving on vancomycin day 5 and wishes to go home Transition to PO doxycycline 100mg bid x 5 additional days (2) Hypertension: Qualifiers: Hypertension type: essential hypertension Qualified Code(s): I10 - Essential (primary) hypertension Code(s): I10 - Essential (primary) hypertension Status: Acute Assessment and Plan: F/u with PCP (3) Cerebral vascular disease: Code(s): I67.9 - Cerebrovascular disease, unspecified Status: Acute Assessment and Plan: Not an active problem (4) Anemia: Qualifiers: Anemia type: other cause Other causes of anemia: chronic disease, other Qualified Code(s): D63.8 - Anemia in other chronic diseases classified elsewhere Code(s): D64.9 - Anemia, unspecified Status: Acute Assessment and Plan: Stable (5) Sepsis: Qualifiers: Sepsis acute organ dysfunction status: without acute organ dysfunction Sepsis type: sepsis due to unspecified organism Qualified Code(s): A41.9 - Sepsis, unspecified organism Code(s): A41.9 - Sepsis, unspecified organism Status: Acute Assessment and Plan: Resolved DS: Summary Hospital Course Reason for hospitalization: Facial pain redness and swelling Hospital Course: 1-2 days prior to admission had facial pain redness and swelling. 4-5 days prior to admission was accidentally struck in the face while playing with a grandchild. Was admitted for IV antibiotic therapy. Gradually improved with 5 days of IV vancomycin. Was tolerating her diet. Was near her baseline functional status by day of discharge. Swelling had improved and she was pain free. Time Spent with Patient Time attestation: Total time spent providing and/or coordinating discharge services: 35 min Exam Narrative: Exam Narrative: HEENT: EOMI, PERRL, sclerae nonicteric, pharyngeal mucosa pink and intact NECK: No JVD CHEST: Clear to auscultation. Normal effort. HEART: NL S1/S2, regular, no murmur ABDOMEN: BS+, soft, nontender, no mass, no bruits EXTREMITIES: No cyanosis, edema, or clubbing NEUROLOGIC: CN intact and symmetric to inspection. MUSCULOSKELETAL: Tone and strength symmetric. PSYCH: Alert. Oriented to person, place, and time. SKIN: fading erythema on forehead and cheeks with healing open areas on left external naris DS: Data Data Completed and Pending Labs on day of discharge: Labs from last 24 hours 08/17/19 05:27 Creatinine 0.90 Estim Creat Clear Calc 45 Estimated GFR > 60 Preliminary micro results at discharge 08/12/19 09:41 Blood Culture - Preliminary Blood 08/12/19 09:41 Blood Culture - Preliminary Blood Discharge Plan Discharge Attending physician on discharge: Kirill Lee Consulting providers: Migel Jimenez Discharging Clinician: Kirill Lee Patient Disposition: Home, Self-Care Activity: no driving Diet: regular Patient Instructions: Antibiotic Form, Cellulitis (ED) Stand Alone Forms: General Discharge Information Follow-up/Referrals: UNKNOWN,DOCTOR [Primary Care Provider] - 1 Week (Primary MD to see in one week to follow up BP and to determine whether you require more antibiotics. ) Discharge Medications: New acetaminophen [Mapap (acetaminophen)] 325 mg Tablet 650 mg PO Q6H PRN (Reason: Mild Pain (1-3) Or Fever) Qty: 0 RF: 0 aspirin 81 mg Tablet,Delayed Release (Dr/Ec) 81 mg PO QAM Qty: 30 RF: 0 Minerin Creme Cream 1 applic topical QAM Qty: 0 RF: 0 doxycycline hyclate 100 mg capsule 100 mg PO Q12H Qty: 10 RF: 0 Con
== END 2019-08-17 15:02 | disposition home or self-care (01) | DRG 872 ==
LOC: ANHED 11:01 → ANH2MED 08-13 20:28
PROVIDERS: Emergency Medicine Emergency Medical Services; Internal Medicine; Admitting Provider Family Medicine; Emergency Provider Emergency Medicine; Visit Provider Internal Medicine
DX: A41.9 Sepsis, unspecified organism (principal); L03.211 Cellulitis of face; I69.351 Hemiplegia and hemiparesis following cerebral infarction affecting right dominant side; D63.8 Anemia in other chronic diseases classified elsewhere; E78.5 Hyperlipidemia, unspecified; I10 Essential (primary) hypertension; F17.210 Nicotine dependence, cigarettes, uncomplicated
CPT/HCPCS: 36415; 80048; 80053; 80074; 80076; 80202; 82565; 82607; 82728; 83540; 83550; 83605; 83615; 85025; 85046; 87040; 87081; 96365; 96375; 97110; 97116; 97161; 97165; 99285; A9270; J0131; J0690; J1650; J1885; J2405; J3370; J7030

== ENCOUNTER 2022-04-24 09:55 | Outpatient (RCR) | payer MEDICARE, MEDICAID, SELFPAY ==
--- NOTE | 2022-04-24 11:18 | PTOPEVAL1 ---
Assessment and note entered by Martita Banuelos, PT Evaluation Information Assessment Status Evaluation Diagnosis CVA, R weakness Onset January 2022 Subjective Information gradually had more weakness of her R side and feeling more heavy; use wheeled walker or cane for walking, sometimes in home- do not use; no falls; do not go out much, mostly stay home; previously would walk about 5 blocks to the bus stop, but no longer do that; is not doing any exercises at home; does not have any fitness equipment at home; she wants to be able to do more around the houes and not depend upon her family as much; Reported Pain Level Pain Score Self Report Additional Pain Score Comments sore R knee, 3/10 rating today; gradual increase in pain, without injury; stated may be why she is not walking as much- knee hurts more the past few months; Assessment PT Clinical Summary Sintia has the diagnosis of CVA; her CVA was 2016, she reports decrease control and more spasticity of R leg. Also R knee pain. She is not doing any leg exercises at home and is not going out into the community. Family assist her with home tasks and shopping. Her PT order is dated 02-10-22; With the evaluation, she has decreased motor control of her R leg, using a cane to dept, but at home has and uses a wheeled walker; 2 minute walking test distance with the cane is 190' and reported fatigue; Tinetti balance/gait score is 16 /28= high fall risk and TUG is 17 seconds. Skilled PT services are indicated for therapeutic exercises and activities to increase R LE strength motor control and balance, for improve mobility safety and skills, with education for home exercise program. Plan of Care Interventions Gait Training,Neuro Re-education,Patient/Caregiver Education,Therapeutic Activities,Therapeutic Exercise PT Services Indicated Yes Treatment Frequency and 2x/wk for 4 weeks Duration These treatments will address the objective and functional deficits as defined above. The patient will be advanced safely and appropriately in order for the patient to progress towards his/her prior level of function. Additional exercises will be introduced and as well as a comprehensive home exercise program upon discharge, if needed, ?to ensure carryover of functional gains achieved in the clinic. This treatment plan has been reviewed and agree
--- NOTE | 2022-07-08 11:22 | PCPTNOTE ---
PHYSICAL THERAPY DISCHARGE 07-08-22 Attending Provider: Honey Pappas NP Patient:Sintia Hernández Date of :1965 Ms. Hernández has not returned for any further treatments since the initial evaluation on 04/24/2022, for the diagnosis of CVA, R weakness. Therefore she will be discharged at this time. The goals were not achieved. Thank you for referring this patient to [facility].
== END 2022-07-08 12:48 | disposition home or self-care (01) ==
LOC: ANHPT 09:55
PROVIDERS: PCP Nurse Practitioner Family; Visit Provider Nurse Practitioner Family
DX: I63.9 Cerebral infarction, unspecified (principal); G83.9 Paralytic syndrome, unspecified; R25.2 Cramp and spasm; R52 Pain, unspecified
CPT/HCPCS: 97110; 97161

== ENCOUNTER 2022-09-21 07:55 | Emergency (ER) | payer MEDICARE, MEDICAID, SELFPAY ==
--- NOTE | ~2022-09-21 | CT_ITS ---
Non-contrast Head CT History: Status post fall COMPARISON: 10/17/2015 Technique: Axial non-contrast imaging of the brain was performed. Dose reduction technique was used on this scan by utilizing automated exposure control and iterative reconstruction technique. The dose -length product (DLP) was 605.33 mGy-cm. Findings: There is no evidence of intracranial hemorrhage, mass lesion, or acute infarct. Brain par enchyma appears normal. The ventricles and subarachnoid spaces are normal in size. The calvarium ap pears normal. The visualized paranasal sinuses and mastoid air cells are clear. Impression: No significant abnormality seen. Reviewed, dictated and finalized at location . Impression: No significant abnormality seen.
--- NOTE | ~2022-09-21 | CT_ITS ---
CT Facial Bones and Cervical Spine Clinical Indication: Status post fall Technique: Contiguous axial scans were obtained through the facial bones and cervical spine followed by coronal and sagittal reconstructions. Dose reduction technique was used on this scan by utilizing automated exposure control and iterative reconstruction technique. The dose-length product (DLP) was 156.65 mGy-cm. Findings: CT facial bones: Questionable minimally displaced nasal bone fractures. No other fractures identified . The visualized paranasal sinuses are clear. Intraorbital soft tissues appear normal. CT cervical spine: No fractures or subluxation. There is anterior fusion from C4 through C7, with fu jillian across the relevant disc spaces as well. There is fusion of the right C2-C3 facet joint. There i s advanced facet arthropathy on the right side at C3-C4 and C4-C5. No prevertebral soft tissue swelli ng. Impression: Questionable minimally displaced bilateral nasal bone fractures. No fracture or subluxation of the cervical spine. Anterior fusion in the cervical spine, with degenerative change, as detailed above. Reviewed, dictated and finalized at location . Impression: Questionable minimally displaced bilateral nasal bone fractures. No fracture or subluxation of the cervical spine. Anterior fusion in the cervical spine, with degenerative change, as detailed ab ove.
[2022-09-21 07:59] VITALS: BP 151/99; PULSE 96; RESP 20; TEMP 36.7; O2SAT 94
--- NOTE | 2022-09-21 09:00 | ED.FALL ---
HPI - Fall General Chief Complaint: Fall <DO Cristina Santos Last Filed: 09/21/22 11:09> Stated Complaint: Fall <DO Cristina Santos Last Filed: 09/21/22 11:09> Time Seen by Provider: 09/21/22 08:40 <DO Cristina Santos Last Filed: 09/21/22 11:09> Source: RN notes reviewed <DO Cristina Santos Last Filed: 09/21/22 11:09> History of Present Illness HPI Narrative: Patient presents emergency department from home for a fall. Patient states that she tripped over a rug this morning and fell face forward striking her face states that she sustained a laceration over her forehead at that time and has had nose pain since that time she also notes some neck pain. She denies any loss of consciousness. Patient denies any other injury denies chest pain shortness of breath or abdominal pain. She states that her last tetanus shot was in the past 2 years <Bruce Vazquez DO - Last Filed: 09/21/22 11:09> Related Data Home Medications: Home Medications Medication Instructions Recorded Confirmed atorvastatin 80 mg tablet 80 mg PO HS 08/12/19 08/12/19 baclofen 10 mg tablet 10 mg PO TID 08/12/19 08/12/19 calcium carbonate 600 mg calcium 1,200 mg PO DAILY 08/12/19 08/12/19 (1,500 mg) tablet (Calcium) levothyroxine 100 mcg tablet 100 mcg PO DAILY 08/12/19 08/12/19 multivitamin,ef-wkrz-mkwgjkom 1 tablet PO DAILY 08/12/19 08/12/19 (Complete Multivitamin tablet) tramadol 50 mg tablet 50 mg PO Q6H PRN Pain 08/12/19 08/12/19 <DO Cristina Santos Last Filed: 09/21/22 11:09> Allergies/Adverse Reactions: Allergies Allergy/AdvReac Type Severity Reaction Status Date / Time Penicillins Allergy Unknown UNKNOWN Verified 09/21/22 08:20 Sulfa (Sulfonamide Allergy Unknown Verified 09/21/22 08:20 Antibiotics) <DO Cristina Santos Last Filed: 09/21/22 11:09> Review of Systems Review of Systems: Gen.: Denies fevers or chills Eyes: Denies eye pain or visual change EN reports facial pain Respiratory: Denies shortness of breath or cough CV: Denies chest pain or palpitations GI: Denies abdominal pain nausea, emesis Musculoskeletal: Reports neck pain Neuro: Reports headache but denies loss of consciousness Skin: Reports facial laceration Except as documented, all other systems reviewed and negative <Bruce Vazquez DO - Last Filed: 09/21/22 11:09> [facility] Past Medical History Medical History: Medical History Cerebral vascular disease Hyperlipidemia Hypertension <Bruce Vazquez DO - Last Filed: 09/21/22 11:09> Surgical History Surgical History: Surgical History (Updated 08/12/19 @ 17:29 by Aamir MckeonMD) History of hysterectomy with bilateral oophorectomy Previous section <Bruce Vazquez DO - Last Filed: 09/21/22 11:09> Family History Family History: Family History (Updated 08/12/19 @ 17:30 by Aamir SamuelMD) Father Acute myocardial infarction Mother Hypertension <Bruce Vazquez DO - Last Filed: 09/21/22 11:09> Social History Social History: Social History Years smoked: 20 Smoking status: Current some day smoker Tobacco type: cigarettes Second hand tobacco smoke exposure: Yes Alcohol intake: never Substance use: never Gender identity (if verbalized by the patient): Female Spiritual care concerns: No Agree to blood products: Yes <Bruce Vazquez DO - Last Filed: 09/21/22 11:09> Exam Narrative: APPEARANCE: No acute distress, nontoxic, resting in bed EYES: EOMI, PERRL HEENT: Normocephalic, tender to palpation across the bridge of the nose no epistaxis no septal hematoma, the remainder the face is nontender bilateral TMs normal appearance, 3 cm laceration over the mid forehead and between the eyebrows that is vertical deep and linear with mild venous bleedi
[2022-09-21] MEDS: LIDOCAINE, EPINEPHRINE, TETRACAINE VISCOUS SOLN 3 ML TOPICAL (10:26)
[2022-09-21] MEDS: HYDROcodone/acetaminophen (*CRX) 5-325 MG TABLET 1 TAB PO (10:26)
== END 2022-09-21 11:15 | disposition home or self-care (01) ==
PROVIDERS: Emergency Provider Emergency Medicine; PCP Nurse Practitioner Family
DX: S02.2XXA Fracture of nasal bones, initial encounter for closed fracture (principal); S16.1XXA Strain of muscle, fascia and tendon at neck level, initial encounter; S01.81XA Laceration without foreign body of other part of head, initial encounter; W01.198A Fall on same level from slipping, tripping and stumbling with subsequent striking against other object, initial encounter; I10 Essential (primary) hypertension; E78.5 Hyperlipidemia, unspecified; F17.210 Nicotine dependence, cigarettes, uncomplicated; Z79.82 Long term (current) use of aspirin
CPT/HCPCS: 12013; 70450; 70486; 72125; 99284; A9270